=== PATIENT | male | born 1985 | race Caucasian/White ===

== ENCOUNTER 2018-06-17 19:04 | Emergency (ER) | payer OTHER ==
[~2018-06-17] VITALS: Ht 177.8 cm; Wt 79.4 kg
--- NOTE | 2018-06-17 19:18 | NUR ---
Assumed care of patient. no acute distress noted. Plan of care reviewed with patient. Will continue to monitor. VSS
--- NOTE | 2018-06-17 19:26 | NUR ---
Patient noted with SaO2 @ 88% on room air. ER MD at bedside for patient evaluation.
[2018-06-17] MEDS ORDERED: ALBUTEROL SULFATE 2.5 MG/3 ML NEBU NEB ONE ×2 (19:30→20:45)
[2018-06-17] MEDS ORDERED: predniSONE 10 MG TABLET PO ONE (19:30)
[2018-06-17] MEDS ORDERED: ALBUTEROL SULFATE 2.5 MG/3 ML NEBU ONE ×2 (19:46→20:52)
[2018-06-17] MEDS ORDERED: predniSONE 20 MG TABLET ONE (19:51)
--- NOTE | 2018-06-17 20:13 | NUR ---
RT at bedside
--- NOTE | 2018-06-17 20:34 | NUR ---
Patient noted with improved work of breathing, lung sounds have improved. No c/o SOB at this time.
--- NOTE | 2018-06-17 21:22 | NUR ---
Patient in bed, breathing tx well tolerated. Current SaO2 @ 97%. VSS
--- NOTE | 2018-06-17 21:40 | NUR ---
RT at bedside.
--- NOTE | 2018-06-17 22:21 | NUR ---
Patient in bed, no acute distress noted. Phlebotomy at bedside.
--- NOTE | 2018-06-17 22:25 | NUR ---
Patient pending inpatient admission due to desaturation to 89%-91% on room air. Patient unable to maintain his SaO2 above 95% when on room air, +wheezing to both lungs.
[2018-06-17 22:29] LABS: BASOPHILS # (AUTO) 0.1 K/uL (0.0-8.0); BASOPHILS % (AUTO) 0.9 % (0.0-2.0); EOSINOPHILS # (AUTO) 0.2 K/uL (0.0-0.7); EOSINOPHILS % (AUTO) 1.5 % (0.0-7.0); LYMPHOCYTES # (AUTO) 0.6 K/uL (20.0-40.0); LYMPHOCYTES % (AUTO) 4.6 % (20.5-51.5); MEAN CORPUSCULAR HEMOGLOBIN 29.5 uug (23.8-33.4); MEAN CORPUSCULAR HGB CONC 33 g/dL (32.5-36.3); MEAN CORPUSCULAR VOLUME 88.5 fL (73.0-96.2); MONOCYTES # (AUTO) 0.3 K/uL (2.0-10.0); MONOCYTES % (AUTO) 1.9 % (0.0-11.0); NEUTROPHILS # (AUTO) 12.7 K/uL (1.8-8.9); NEUTROPHILS % (AUTO) 91.1 % (38.5-71.5); PLATELET COUNT (AUTO) 251 K/uL (152-348); RED BLOOD CELL COUNT(AUTO) 5.09 MIL/uL (4.06-5.63); WHITE BLOOD COUNT (AUTO) 13.9 K/uL (3.6-10.2)
[2018-06-17 22:50] LABS: ALANINE AMINOTRANSFERASE 19 U/L (16-63); ALKALINE PHOSPHATASE 70 U/L (50-136); ASPARTATE AMINOTRANSFERASE 18 U/L (15-37); BILIRUBIN,DIRECT 0.2 mg/dL (0.0-0.2); BILIRUBIN,TOTAL 0.6 mg/dL (0.2-1.0); CARBON DIOXIDE 24 mmol/L (21-32); CHLORIDE 102 mmol/L (98-107); CREATININE 0.7 mg/dL (0.6-1.3); GLUCOSE 153 mg/dL (74-106); POTASSIUM 3.3 mmol/L (3.5-5.1); TOTAL PROTEIN, SERUM 7.9 g/dL (6.4-8.2); UREA NITROGEN, BLOOD 11 mg/dL (7-18)
--- NOTE | 2018-06-17 22:50 | NUR ---
Patient in bed, no acute distress noted. VSS
--- NOTE | 2018-06-17 23:20 | NUR ---
ER MD on phone with insurance MD for MD to MD call
--- NOTE | 2018-06-17 23:21 | NUR ---
DAVID JONES spoke to Dr Proctor who is part of the [employer].
--- NOTE | 2018-06-17 23:52 | NUR ---
Spoke to Paulina Mcgill from [facility], requesting clinical information for the patient.
--- NOTE | 2018-06-18 00:16 | NUR ---
Patient in bed, no acute distress noted. VSS
--- NOTE | 2018-06-18 00:28 | NUR ---
Spoke to Justina, patient going to [facility] room 621. Accepting physician is Alec. ETA is 30 min.
--- NOTE | 2018-06-18 00:51 | NUR ---
Report given to Mario PEREZ at [facility].
--- NOTE | 2018-06-18 01:00 | NUR ---
[id number] arrived for patient potato picker. Preet EMT given patient report. All belongings, patient chart and transfer paperwork given to EMT.
== END 2018-06-18 01:05 | disposition short-term general hospital (02) ==
LOC: ER 19:04
DX: J96.91 Respiratory failure, unspecified with hypoxia (principal); J98.01 Acute bronchospasm; Z87.891 Personal history of nicotine dependence
CPT/HCPCS: 36415; 71045; 80048; 80076; 83880; 84484; 85025; 85730; 93005; 94640 ×2; 99291; J7512; 70030-TC; A4663